=== PATIENT | male | born 1970 | race African-American/Black ===

== ENCOUNTER 2017-11-26 11:53 | Emergency (ER) | payer MEDICAID ==
[~2017-11-26] VITALS: Ht 165.1 cm; Wt 72.7 kg
[~2017-11-26 11:53] MED LIST: ALBU4TAB4 PO; ALBUTEROL; INSLAN SQ; INSREG SQ; METO25 PO; NITR.4 SL; SIMV-260 PO; SIMVASTATIN; TRAMADOL
[2017-11-26] MEDS ORDERED: IBUPROFEN 800 MG TABLET PO ONE (13:45)
[2017-11-26 14:20] VITALS: BP 110/92
== END 2017-11-26 14:57 | disposition home or self-care (01) ==
LOC: EMS 12:01
DX: S82.452D Displaced comminuted fracture of shaft of left fibula, subsequent encounter for closed fracture with routine healing (principal); S92.345D Nondisplaced fracture of fourth metatarsal bone, left foot, subsequent encounter for fracture with routine healing; F41.9 Anxiety disorder, unspecified; I10 Essential (primary) hypertension; J45.909 Unspecified asthma, uncomplicated; Z79.4 Long term (current) use of insulin; Z86.73 Personal history of transient ischemic attack (TIA), and cerebral infarction without residual deficits; W19.XXXD Unspecified fall, subsequent encounter
CPT/HCPCS: 29515; 99284

== ENCOUNTER 2018-01-05 10:16 | Inpatient (IN) | payer MEDICAID ==
[~2018-01-05] VITALS: Ht 162.6 cm; Wt 65.3 kg
[~2018-01-05 10:16] MED LIST changes: -ALBUTEROL; -SIMVASTATIN; -TRAMADOL
[2018-01-05 12:19] LABS: GLUCOSE,POINT OF CARE 94 MG/DL (70-110)
[2018-01-05 12:32] LABS: EOSINOPHILS % (AUTO) 5.2 % (1.0-6.0); HEMATOCRIT 42.7 % (41-53); HEMOGLOBIN 14.8 g/dL (13.5-17.5); LYMPHOCYTES # (AUTO) 1.7 K/uL (1.0-4.8); LYMPHOCYTES % (AUTO) 31.4 % (22.0-44.0); MEAN CORPUSCULAR HGB CONC 34.7 G/dL (31.0-37.0); MEAN CORPUSCULAR VOLUME 86 fL (80-100); MONOCYTES # (AUTO) 0.5 K/uL (0.1-1.0); MONOCYTES % (AUTO) 8.8 % (2.0-9.0); NEUTROPHILS % (AUTO) 53.6 % (40.0-70.0); PLATELET COUNT (AUTO) 290 K/uL (150-450); RED BLOOD CELL COUNT(AUTO) 4.94 MIL/uL (4.50-5.90); RED CELL DISTRIBUTION WIDTH 14.2 % (11.5-14.5)
[2018-01-05 12:41] LABS: ANION GAP 6 mmol/L (8-16); CALCIUM, TOTAL 8.8 mg/dL (8.8-10.5); CARBON DIOXIDE 29 mmol/L (22-29); CHLORIDE 102 mmol/L (98-107); CREATININE 1.11 mg/dL (0.60-1.30); GLOMERULAR FILTR. RATE CALC > 60 mL/min (>60); GLUCOSE,RANDOM 91 mg/dL (70-110); SODIUM SERUM 137 mmol/L (136-145); UREA NITROGEN, BLOOD 20 mg/dL (7-18)
[2018-01-05 12:47] LABS: ALANINE AMINOTRANSFERASE 28 U/L (12-78); ALBUMIN 3.8 g/dL (3.4-5.0); ALKALINE PHOSPHATASE 103 U/L (46-116); ASPARTATE AMINOTRANSFERASE 20 U/L (15-37); BILIRUBIN,TOTAL 0.4 mg/dL (0.1-1.0); TOTAL PROTEIN, SERUM 8.2 g/dL (6.4-8.2)
[2018-01-05] MEDS ORDERED: LORazepam 2 MG TABLET PO ONE (13:15)
[2018-01-05] MEDS ORDERED: HALOPERIDOL 5 MG TABLET PO ONE (13:15)
[2018-01-05] MEDS ORDERED: HALOPERIDOL 5 MG TABLET PO PRN (14:00)
[2018-01-05] MEDS ORDERED: LORazepam 2 MG TABLET PO PRN (14:00)
[2018-01-05] MEDS ORDERED: ZOLPIDEM TARTRATE 10 MG TABLET PO PRN (14:00)
[2018-01-05 17:20] VITALS: BP 130/86
[2018-01-05 17:44] LABS: GLUCOMETER DEV NAME(LOC) BV2S 2; GLUCOSE,POINT OF CARE 93 MG/DL (70-110)
[2018-01-05] MEDS ORDERED: PNEUMOCOCCAL VACCINE POLYVALENT 0.5 ML VIAL [PPSV23] IM ONE (17:45)
[2018-01-05] MEDS ORDERED: ACETAMINOPHEN 325 MG TABLET PO PRN (18:15)
[2018-01-05] MEDS ORDERED: MAGNESIUM HYDROXIDE SUSPENSION 30 ML UDCUP PO PRN (18:15)
[2018-01-05] MEDS ORDERED: DOCUSATE SODIUM 100 MG CAPSULE PO PRN (18:15)
[2018-01-05] MEDS ORDERED: ALBUTEROL SULFATE HFA 90 MCG/PUFF 8 GM INHALER IH PRN (18:15)
[2018-01-05] MEDS ORDERED: MAG HYDROX/AL HYDROX/SIMETH ES 30 ML SUSPENSION UDCUP PO PRN (18:15)
[2018-01-05] MEDS ORDERED: NITROGLYCERIN 0.4 MG SUBLINGUAL TABLET #25 SL PRN (18:15)
[2018-01-05] MEDS ORDERED: PETROLATUM,WHITE 71 GM JELLY TP PRN (18:15)
[2018-01-05] MEDS ORDERED: IBUPROFEN 400 MG TABLET PO PRN (18:15)
[2018-01-05] MEDS ORDERED: ONDANSETRON HCL 4 MG TABLET PO PRN (18:15)
[2018-01-05] MEDS ORDERED: CloNIDine HCL 0.1 MG TABLET PO PRN (18:15)
[2018-01-05] MEDS ORDERED: LOPERAMIDE HCL 2 MG CAPSULE PO PRN (18:15)
[2018-01-05] MEDS: SIMVASTATIN 20 MG TABLET PO SCH (20:36)
[2018-01-06 06:09] VITALS: BP 132/80
[2018-01-06 08:34] LABS: BASOPHILS % (AUTO) 0.5 % (0.0-2.0); EOSINOPHILS % (AUTO) 4.5 % (1.0-6.0); HEMATOCRIT 41.3 % (41-53); HEMOGLOBIN 14.4 g/dL (13.5-17.5); LYMPHOCYTES # (AUTO) 1.8 K/uL (1.0-4.8); LYMPHOCYTES % (AUTO) 25.5 % (22.0-44.0); MEAN CORPUSCULAR HEMOGLOBIN 29.9 pg (26.0-34.0); MEAN CORPUSCULAR HGB CONC 34.8 G/dL (31.0-37.0); MEAN CORPUSCULAR VOLUME 86 fL (80-100); MONOCYTES # (AUTO) 0.6 K/uL (0.1-1.0); MONOCYTES % (AUTO) 8.3 % (2.0-9.0); NEUTROPHILS # (AUTO) 4.3 K/uL (1.8-7.7); NEUTROPHILS % (AUTO) 61.2 % (40.0-70.0); PLATELET COUNT (AUTO) 251 K/uL (150-450); RED CELL DISTRIBUTION WIDTH 14.1 % (11.5-14.5)
[2018-01-06 08:38] VITALS: BP 127/75
[2018-01-06 08:54] LABS: HEMOGLOBIN A1C 5.8 % (4.5-6.2)
[2018-01-06 09:20] LABS: ALANINE AMINOTRANSFERASE 24 U/L (12-78); ALBUMIN 3.5 g/dL (3.4-5.0); ALKALINE PHOSPHATASE 92 U/L (46-116); ANION GAP 7 mmol/L (8-16); ASPARTATE AMINOTRANSFERASE 17 U/L (15-37); BILIRUBIN,TOTAL 0.4 mg/dL (0.1-1.0); CALCIUM, TOTAL 8.8 mg/dL (8.8-10.5); CARBON DIOXIDE 26 mmol/L (22-29); CHLORIDE 103 mmol/L (98-107); CHOL/HDL RATIO 5.4 (4.2-7.3); CHOLESTEROL 198 mg/dL (131-200); CREATININE 0.83 mg/dL (0.60-1.30); GLOMERULAR FILTR. RATE CALC > 60 mL/min (>60); GLUCOSE,RANDOM 92 mg/dL (70-110); HDL CHOLESTEROL 37 mg/dL (40-60); LDL CHOL (CALC.) 118 mg/dL (0-130); POTASSIUM 4.3 mmol/L (3.5-5.1); SODIUM SERUM 136 mmol/L (136-145); THYROID STIMULATING HORMONE 1.96 uIU/mL (0.36-3.74); TRIGLYCERIDES 213 mg/dL (15-150); UREA NITROGEN, BLOOD 21 mg/dL (7-18)
[2018-01-06] MEDS: METOPROLOL TARTRATE 25 MG TABLET PO SCH ×2 (09:20→16:40)
[2018-01-06] MEDS: NICOTINE 14 MG/24 HOUR PATCH TD SCH (09:29)
[2018-01-06 16:15] VITALS: BP 107/65
[2018-01-06 16:59] LABS: GLUCOMETER DEV NAME(LOC) BV2S 2; GLUCOSE,POINT OF CARE 113 MG/DL (70-110)
[2018-01-06] MEDS: SIMVASTATIN 20 MG TABLET PO SCH (20:32)
[2018-01-07 06:17] VITALS: BP 105/66
[2018-01-07 07:18] LABS: GLUCOMETER DEV NAME(LOC) BV2S 2; GLUCOSE,POINT OF CARE 83 MG/DL (70-110)
[2018-01-07 08:46] VITALS: BP 104/65
[2018-01-07] MEDS: ARIPiprazole 10 MG TABLET PO SCH (09:09)
[2018-01-07] MEDS: METOPROLOL TARTRATE 25 MG TABLET PO SCH ×2 (09:09→16:33)
[2018-01-07] MEDS: NICOTINE 14 MG/24 HOUR PATCH TD SCH (10:13)
[2018-01-07 16:46] VITALS: BP 112/60
[2018-01-07 17:53] LABS: GLUCOMETER DEV NAME(LOC) BV2S 2; GLUCOSE,POINT OF CARE 108 MG/DL (70-110)
[2018-01-07] MEDS: SIMVASTATIN 20 MG TABLET PO SCH (20:17)
[2018-01-08 06:28] LABS: GLUCOMETER DEV NAME(LOC) BV2S 2; GLUCOSE,POINT OF CARE 106 MG/DL (70-110)
[2018-01-08 06:49] VITALS: BP 116/67
[2018-01-08 08:35] VITALS: BP 114/78
[2018-01-08] MEDS: METOPROLOL TARTRATE 25 MG TABLET PO SCH ×2 (08:57→16:09)
[2018-01-08] MEDS: ARIPiprazole 10 MG TABLET PO SCH (08:57)
[2018-01-08] MEDS: NICOTINE 14 MG/24 HOUR PATCH TD SCH (08:57)
[2018-01-08 16:12] VITALS: BP 120/78
[2018-01-08 16:54] LABS: GLUCOMETER DEV NAME(LOC) BV2S 2; GLUCOSE,POINT OF CARE 113 MG/DL (70-110)
[2018-01-08] MEDS: SIMVASTATIN 20 MG TABLET PO SCH (20:17)
[2018-01-09 01:07] VITALS: BP 113/70
[2018-01-09 06:25] LABS: GLUCOMETER DEV NAME(LOC) BV2S 2; GLUCOSE,POINT OF CARE 93 MG/DL (70-110)
[2018-01-09] MEDS: ARIPiprazole 15 MG TABLET PO SCH (08:20)
[2018-01-09] MEDS: NICOTINE 14 MG/24 HOUR PATCH TD SCH (08:21)
[2018-01-09] MEDS: METOPROLOL TARTRATE 25 MG TABLET PO SCH ×2 (08:21→16:19)
[2018-01-09 08:22] VITALS: BP 112/78
[2018-01-09] MEDS: SERTRALINE HCL 50 MG TABLET PO SCH (12:15)
[2018-01-09 16:49] VITALS: BP 116/76
[2018-01-09 16:49] LABS: GLUCOMETER DEV NAME(LOC) BV2S 2; GLUCOSE,POINT OF CARE 119 MG/DL (70-110)
[2018-01-09] MEDS: SIMVASTATIN 20 MG TABLET PO SCH (20:32)
[2018-01-10 06:09] LABS: GLUCOMETER DEV NAME(LOC) BV2S 2; GLUCOSE,POINT OF CARE 88 MG/DL (70-110)
[2018-01-10 06:10] VITALS: BP 115/71
[2018-01-10] MEDS: ARIPiprazole 15 MG TABLET PO SCH (08:35)
[2018-01-10] MEDS: METOPROLOL TARTRATE 25 MG TABLET PO SCH ×2 (08:35→16:09)
[2018-01-10] MEDS: SERTRALINE HCL 50 MG TABLET PO SCH (08:35)
[2018-01-10] MEDS: NICOTINE 14 MG/24 HOUR PATCH TD SCH ×2 (08:36→14:12)
[2018-01-10 08:55] VITALS: BP 114/76
[2018-01-10 16:16] VITALS: BP 116/84
[2018-01-10 16:33] LABS: GLUCOMETER DEV NAME(LOC) BV2S 2; GLUCOSE,POINT OF CARE 105 MG/DL (70-110)
[2018-01-10] MEDS: SIMVASTATIN 20 MG TABLET PO SCH (20:42)
[2018-01-11 06:41] VITALS: BP 112/90
[2018-01-11] MEDS: ARIPiprazole 15 MG TABLET PO SCH (08:49)
[2018-01-11] MEDS: SERTRALINE HCL 50 MG TABLET PO SCH (08:50)
[2018-01-11] MEDS: NICOTINE 14 MG/24 HOUR PATCH TD SCH (08:50)
[2018-01-11] MEDS: METOPROLOL TARTRATE 25 MG TABLET PO SCH (08:50)
[2018-01-11 09:07] VITALS: BP 106/61
[2018-01-11] MEDS ORDERED: SERT50TA12 PO ×2 (09:44→11:29)
[2018-01-11] MEDS ORDERED: ARIP15TA2 PO ×2 (09:44→11:29)
== END 2018-01-11 13:10 | disposition home or self-care (01) | DRG 750 ==
LOC: EMS 10:20 → B2S 15:09
PROC: 3E0234Z Introduction of Serum, Toxoid and Vaccine into Muscle, Percutaneous Approach (ICD-10-PCS; principal; 2018-01-05)
DX: F25.1 Schizoaffective disorder, depressive type (principal); E11.9 Type 2 diabetes mellitus without complications; R45.851 Suicidal ideations; I10 Essential (primary) hypertension; E78.5 Hyperlipidemia, unspecified; F17.210 Nicotine dependence, cigarettes, uncomplicated; F41.9 Anxiety disorder, unspecified; J44.9 Chronic obstructive pulmonary disease, unspecified; K21.9 Gastro-esophageal reflux disease without esophagitis; Z79.899 Other long term (current) drug therapy; Z86.73 Personal history of transient ischemic attack (TIA), and cerebral infarction without residual deficits; Z91.5 Personal history of self-harm; Z23 Encounter for immunization
CPT/HCPCS: 83036; 84443; 87081; 90471; 99285; G0480

== ENCOUNTER 2018-02-18 16:10 | Emergency (ER) | payer MEDICAID ==
[~2018-02-18] VITALS: Ht 165.1 cm; Wt 75.0 kg
[~2018-02-18 16:10] MED LIST changes: -ALBU4TAB4 PO; +ARIP15TA2 PO; -INSLAN SQ; -INSREG SQ; -NITR.4 SL; +SERT50TA12 PO
[2018-02-18 17:34] LABS: GLUCOSE,POINT OF CARE 106 MG/DL (70-110)
[2018-02-18 20:34] VITALS: BP 131/76
== END 2018-02-18 20:36 | disposition home or self-care (01) ==
LOC: EMS 16:11
DX: Z59.0 Homelessness (principal); F41.9 Anxiety disorder, unspecified; J45.909 Unspecified asthma, uncomplicated; I10 Essential (primary) hypertension; Z86.73 Personal history of transient ischemic attack (TIA), and cerebral infarction without residual deficits; Z79.899 Other long term (current) drug therapy; F15.10 Other stimulant abuse, uncomplicated
CPT/HCPCS: 99285

== ENCOUNTER 2022-07-01 13:58 | Inpatient (IN) | payer MEDICAID ==
[~2022-07-01] VITALS: Ht 167.6 cm; Wt 81.6 kg
[~2022-07-01 13:58] MED LIST changes: -ARIP15TA2 PO; +ARIP15TA27 PO; +SERT-158 PO; +SERT-439 PO; -SERT50TA12 PO
[2022-07-01] MEDS ORDERED: ACETAMINOPHEN 500 MG TABLET PO ONE (16:15)
[2022-07-01 16:35] LABS: COVID AG,FIA SOURCE NASOPHARYNGEAL
[2022-07-01 16:40] LABS: BASOPHILS % (AUTO) 0.8 % (0.0-2.0); EOSINOPHILS % (AUTO) 6.2 % (1.0-6.0); HEMATOCRIT 42.3 % (41-53); HEMOGLOBIN 14.2 g/dL (13.5-17.5); LYMPHOCYTES % (AUTO) 36.6 % (22.0-44.0); MEAN CORPUSCULAR HEMOGLOBIN 29.8 pg (26.0-34.0); MEAN CORPUSCULAR HGB CONC 33.6 G/dL (31.0-37.0); MEAN CORPUSCULAR VOLUME 89 fL (80-100); MONOCYTES # (AUTO) 0.6 K/uL (0.1-1.0); MONOCYTES % (AUTO) 10.9 % (2.0-9.0); NEUTROPHILS # (AUTO) 2.5 K/uL (1.8-7.7); NEUTROPHILS % (AUTO) 45.5 % (40.0-70.0); PLATELET COUNT (AUTO) 240 K/uL (150-450); RED BLOOD CELL COUNT(AUTO) 4.77 MIL/uL (4.50-5.90); RED CELL DISTRIBUTION WIDTH 14.3 % (11.5-14.5)
[2022-07-01 16:46] LABS: ANION GAP 10 mmol/L (8-16); CALCIUM, TOTAL 9.2 mg/dL (8.8-10.5); CARBON DIOXIDE 27 mmol/L (22-29); CHLORIDE 100 mmol/L (98-107); CREATININE 1.17 mg/dL (0.60-1.30); GLUCOSE,RANDOM 96 mg/dL (70-110); POTASSIUM 3.9 mmol/L (3.5-5.1); SODIUM SERUM 137 mmol/L (136-145); UREA NITROGEN, BLOOD 14 mg/dL (7-18)
[2022-07-01 16:47] LABS: GLOMERULAR FILTR. RATE CALC > 60 mL/min (>60)
[2022-07-01 16:52] LABS: ALANINE AMINOTRANSFERASE 53 U/L (12-78); ALBUMIN 3.8 g/dL (3.4-5.0); ALKALINE PHOSPHATASE 105 U/L (46-116); ASPARTATE AMINOTRANSFERASE 28 U/L (15-37); BILIRUBIN,TOTAL 0.2 mg/dL (0.1-1.0); TOTAL PROTEIN, SERUM 7.8 g/dL (6.4-8.2)
[2022-07-01] MEDS ORDERED: HALOPERIDOL 5 MG TABLET PO ONE (17:45)
[2022-07-01] MEDS ORDERED: ALBUTEROL SULFATE HFA 90 MCG/PUFF 8 GM INHALER IH ONE (18:00)
[2022-07-01] MEDS ORDERED: ZOLPIDEM TARTRATE 10 MG TABLET PO PRN (21:00)
[2022-07-01 22:25] VITALS: BP 104/59
[2022-07-02] MEDS ORDERED: INFLUENZA VIRUS VACCINE QVS 2022-23 (6MO+)/PF 60 MCG/0.5 ML SYRINGE IM. ONE (00:45)
[2022-07-02 06:32] LABS: GLUCOMETER DEV NAME(LOC) BV3N.; GLUCOSE,POINT OF CARE 123 MG/DL (70-110)
[2022-07-02 08:35] VITALS: BP 113/68
[2022-07-02] MEDS: HALOPERIDOL 5 MG TABLET PO PRN (10:17)
[2022-07-02] MEDS: LORazepam 2 MG TABLET PO PRN (10:18)
[2022-07-02] MEDS ORDERED: ACETAMINOPHEN 325 MG TABLET PO PRN (11:45)
[2022-07-02] MEDS ORDERED: ALBUTEROL SULFATE HFA 90 MCG/PUFF 8 GM INHALER IH PRN (11:45)
[2022-07-02] MEDS ORDERED: LOPERAMIDE HCL 2 MG CAPSULE PO PRN (11:45)
[2022-07-02] MEDS ORDERED: GuaiFENesin/D-METHORPHAN [SUGAR-FREE] 200-20MG/10 ML SYRUP UDCUP PO PRN (11:45)
[2022-07-02] MEDS ORDERED: MAGNESIUM HYDROXIDE SUSPENSION 30 ML UDCUP PO PRN (11:45)
[2022-07-02] MEDS ORDERED: CloNIDine HCL 0.1 MG TABLET PO PRN (11:45)
[2022-07-02] MEDS ORDERED: DOCUSATE SODIUM 100 MG CAPSULE PO PRN (11:45)
[2022-07-02] MEDS ORDERED: ONDANSETRON HCL 4 MG TABLET PO PRN (11:45)
[2022-07-02] MEDS ORDERED: IBUPROFEN 400 MG TABLET PO PRN (11:45)
[2022-07-02] MEDS ORDERED: PETROLATUM,WHITE 28 GM JELLY TP PRN (11:45)
[2022-07-02] MEDS ORDERED: MAG HYDROX/AL HYDROX/SIMETH ES 30 ML SUSPENSION UDCUP PO PRN (11:45)
[2022-07-02] MEDS ORDERED: NICOTINE 14 MG/24 HOUR PATCH TD PRN (11:45)
[2022-07-02] MEDS: SERTRALINE HCL 50 MG TABLET PO SCH ×2 (11:50→17:00)
[2022-07-02] MEDS: METOPROLOL TARTRATE 25 MG TABLET PO SCH (17:00)
[2022-07-02 20:06] VITALS: BP 123/65
[2022-07-02] MEDS: ARIPiprazole 15 MG TABLET PO SCH (21:11)
[2022-07-02] MEDS: SIMVASTATIN 20 MG TABLET PO SCH (21:11)
[2022-07-03 07:06] LABS: GLUCOMETER DEV NAME(LOC) BV3N.; GLUCOSE,POINT OF CARE 202 MG/DL (70-110)
[2022-07-03 08:19] VITALS: BP 132/68
[2022-07-03] MEDS: SERTRALINE HCL 50 MG TABLET PO SCH ×2 (08:26→17:04)
[2022-07-03] MEDS: LORazepam 2 MG TABLET PO PRN ×2 (08:26→17:05)
[2022-07-03] MEDS: METOPROLOL TARTRATE 25 MG TABLET PO SCH ×2 (08:26→17:04)
[2022-07-03] MEDS: HALOPERIDOL 5 MG TABLET PO PRN (17:05)
[2022-07-03 19:31] LABS: GLUCOMETER DEV NAME(LOC) ERT.5; GLUCOSE,POINT OF CARE 151 MG/DL (70-110)
[2022-07-03 20:17] VITALS: BP 122/75
[2022-07-03] MEDS: SIMVASTATIN 20 MG TABLET PO SCH (20:42)
[2022-07-03] MEDS: ARIPiprazole 15 MG TABLET PO SCH (20:42)
[2022-07-04 08:40] VITALS: BP 108/62
[2022-07-04] MEDS: SERTRALINE HCL 50 MG TABLET PO SCH ×2 (08:40→17:02)
[2022-07-04] MEDS: METOPROLOL TARTRATE 25 MG TABLET PO SCH ×2 (08:40→17:03)
[2022-07-04] MEDS: HALOPERIDOL 5 MG TABLET PO PRN (17:02)
[2022-07-04 20:20] VITALS: BP 121/75
[2022-07-04] MEDS: ARIPiprazole 15 MG TABLET PO SCH (20:29)
[2022-07-04] MEDS: SIMVASTATIN 20 MG TABLET PO SCH (20:29)
[2022-07-05] MEDS: METOPROLOL TARTRATE 25 MG TABLET PO SCH ×2 (08:32→16:15)
[2022-07-05] MEDS: SERTRALINE HCL 50 MG TABLET PO SCH ×2 (08:32→16:15)
[2022-07-05 09:39] VITALS: BP 130/76
[2022-07-05 17:00] VITALS: BP 114/74
[2022-07-05 17:37] VITALS: BP 114/74
[2022-07-05 20:31] VITALS: BP 113/74
[2022-07-05] MEDS: ARIPiprazole 15 MG TABLET PO SCH (21:00)
[2022-07-05] MEDS: SIMVASTATIN 20 MG TABLET PO SCH (21:00)
[2022-07-06 08:20] VITALS: BP 114/70
[2022-07-06] MEDS: SERTRALINE HCL 50 MG TABLET PO SCH (08:30)
[2022-07-06] MEDS: METOPROLOL TARTRATE 25 MG TABLET PO SCH (08:30)
[2022-07-06] MEDS ORDERED: ARIP15TA27 PO (10:50)
[2022-07-06] MEDS ORDERED: SERT-439 PO (10:50)
== END 2022-07-06 13:23 | disposition home or self-care (01) | DRG 750 ==
LOC: EMS 14:06 → B3A 21:00 → EMS 22:05
PROVIDERS: ADMIT Psychiatry & Neurology Child & Adolescent Psychiatry; ATTEND Psychiatry & Neurology Child & Adolescent Psychiatry
DX: F20.9 Schizophrenia, unspecified (principal); E11.9 Type 2 diabetes mellitus without complications; R45.851 Suicidal ideations; F32.A Depression, unspecified; F41.9 Anxiety disorder, unspecified; I10 Essential (primary) hypertension; E78.00 Pure hypercholesterolemia, unspecified; F10.10 Alcohol abuse, uncomplicated; F15.10 Other stimulant abuse, uncomplicated; J45.909 Unspecified asthma, uncomplicated; Z20.822 Contact with and (suspected) exposure to COVID-19; Z59.00 Homelessness unspecified; Z86.73 Personal history of transient ischemic attack (TIA), and cerebral infarction without residual deficits; Z87.891 Personal history of nicotine dependence; Z91.14 Patient's other noncompliance with medication regimen; Z91.199 Patient's noncompliance with other medical treatment and regimen due to unspecified reason; Z79.899 Other long term (current) drug therapy
CPT/HCPCS: 80053; 82962; 85025; 99285; G0480; J3535